=== PATIENT | male | born 1980 | race Caucasian/White ===

== ENCOUNTER 2023-12-12 20:16 | Emergency (ER) | payer OTHER ==
[~2023-12-12] VITALS: Ht 180.3 cm; Wt 108.9 kg
[~2023-12-12 20:16] MED LIST: CEPH500 PO; HYDACE5 PO; PENVK500 PO
[2023-12-12 20:31] VITALS: BP 145/96
== END 2023-12-12 22:10 | disposition home or self-care (01) ==
LOC: ER 20:16
DX: L02.412 Cutaneous abscess of left axilla (principal); Z79.2 Long term (current) use of antibiotics
CPT/HCPCS: 10060; 99282-25